=== PATIENT | male | born 1990 | race Caucasian/White ===

== ENCOUNTER 2016-06-17 10:37 | Emergency (ER) | payer OTHER ==
[~2016-06-17] VITALS: Ht 182.8 cm; Wt 102.1 kg
[2016-06-17] MEDS ORDERED: KEFLEX500 M1 PO (10:54)
[2016-06-17] MEDS ORDERED: NAPROSYN500 MG PO (10:54)
== END 2016-06-17 14:18 | disposition home or self-care (01) ==
LOC: ED 10:37
DX: S61.412A Laceration without foreign body of left hand, initial encounter (principal); R03.0 Elevated blood-pressure reading, without diagnosis of hypertension; F17.200 Nicotine dependence, unspecified, uncomplicated; Z88.7 Allergy status to serum and vaccine; W27.0XXA Contact with workbench tool, initial encounter; Y93.89 Activity, other specified; Y92.89 Other specified places as the place of occurrence of the external cause; Y99.9 Unspecified external cause status